=== PATIENT | female | born 1990 | race American Indian/Alaskan Native ===

== ENCOUNTER 2018-12-18 15:09 | Emergency (ER) | payer BC ==
[2018-12-18 15:16] VITALS: O2SAT 100
[2018-12-18 16:08] LABS: BASO % 0.9 % (0.0-2.0); EOS # 0.1 K/uL (0.0-0.7); EOS % 1.1 % (0.0-4.0); HEMOGLOBIN 13.3 g/dL (12.0-16.0); LYMPH # 1.9 K/uL (1.0-4.3); LYMPH % 38.3 % (20.0-40.0); MEAN CELL VOLUME 96.4 fl (81.0-99.0); MEAN CORPUSCULAR HEMOGLOBIN 31.7 pg (27.0-31.0); MEAN CORPUSCULAR HGB CONC 32.9 g/dL (33.0-37.0); MEAN PLATELET VOLUME 9.8 fl (7.2-11.7); MONO # 0.5 K/uL (0.0-0.8); MONO % 10.3 % (0.0-10.0); NEUT # 2.4 K/uL (1.8-7.0); NEUT % 49.4 % (50.0-75.0); NRBC % 0.2 % (0.0-0.0); RBC 4.18 Mil/uL (3.80-5.20); RED CELL DISTRIBUTION WIDTH 13.9 % (11.5-14.5); WHITE BLOOD COUNT 4.9 K/uL (4.8-10.8)
[2018-12-18 16:23] LABS: BLOOD UREA NITROGEN 5 mg/dl (7-17); CALCIUM 9.2 mg/dL (8.4-10.2); GFR NON-AFRICAN AMERICAN > 60
--- NOTE | 2018-12-18 16:49 | US ---
Date of service: 12/18/2018 HISTORY: 6 wks , cramping and spotting LMP 11/05/2018 COMPARISON: None available. TECHNIQUE: Transvaginal FINDINGS: UTERUS: Measures 6.6 x 3.6 by 4.4 cm cm. Within the uterine cavity a single intrauterine gestation is present. The gestational sac mean sac diameter is 1.5 cm corresponding to 5 weeks 6 days. Yolk sac is present measuring 0.3 cm. Pole present crown-rump length equaling 0.6 cm corresponding to 5 weeks 6 days. /embryo cardiac activity present 121 beats per minute. No Idania gestational hemorrhage noted no fibroid or other mass lesion seen. CERVIX: No cervical abnormality identified. Cervix closed measuring 3.1 cm in length. RIGHT OVARY: Measures 3.0 x 2.5 x 3.3 cm. No solid mass. Normal flow. Corpus luteal cyst suggested measures 7 x 6 x 8 mm. LEFT OVARY: Measures 2.2 x 1.2 x 1.4 cm. Tiny 2 to 3 mm peripheral follicle cyst noted. No solid mass. Normal flow. FREE FLUID: No significant free fluid noted. OTHER FINDINGS: None. IMPRESSION: Single intrauterine gestation with normal cardiac activity whose menstrual age by ultrasound parameters is 6 weeks 1 day +/-0 weeks 3 days with an estimated date of delivery of 08/12/2019. This is concordant with the clinical dates of 6 weeks 1 day. Findings compatible with a small right corpus luteal cyst. Perigestational hemorrhage seen.
--- NOTE | 2018-12-18 16:53 | ED PDOC ---
HPI: Female Pain Time Seen by Provider: 12/18/18 15:31 Chief Complaint (Nursing): Female Genitourinary Chief Complaint (Provider): vaginal spotting and cramping History Per: Patient History/Exam Limitations: no limitations Additional Complaint(s): 28 y/o Female with no significant PMH who is approximately 6 weeks who presents with vaginal spotting since last night and lower abdominal cramping for the past month that has gotten slightly worse. Denies dysuria, passing clots, vaginal discharge prior to spotting. She called her [employer] who recommended that she come to ED for further evaluation. Past Medical History Reviewed: Historical Data, Nursing Documentation, Vital Signs Vital Signs: Last Vital Signs Temp 98.3 F 12/18/18 15:13 Pulse 108 H 12/18/18 15:13 Resp 18 12/18/18 15:13 BP 127/74 12/18/18 15:13 Pulse Ox 100 12/18/18 15:13 - Medical History PMH: No Chronic Diseases Denies: Chronic Kidney Disease - Family History Family History: States: Unknown Family Hx - Home Medications Home Medications: Ambulatory Orders Medication Instructions Recorded Nitrofurantoin Macrocrystals 100 mg PO BID 5 Days cap 12/18/18 [Macrobid] - Allergies Allergies/Adverse Reactions: Allergies Allergy/AdvReac Type Severity Reaction Status Date / Time No Known Allergies Allergy Verified 12/18/18 15:12 Review of Systems Constitutional: Negative for: Fever, Chills Gastrointestinal: Positive for: Abdominal Pain. Negative for: Nausea, Vomiting Genitourinary Female: Positive for: Vaginal Bleeding Physical Exam - Reviewed Nursing Documentation Reviewed: Yes Vital Signs Reviewed: Yes - Physical Exam Appears: Positive for: Well Skin: Positive for: Normal Color Cardiovascular/Chest: Positive for: Regular Rate, Rhythm Respiratory: Positive for: Normal Breath Sounds Gastrointestinal/Abdominal: Positive for: Tenderness (mild suprapubic) Lymphatic: Positive for: Normal Exam Neurologic/Psych: Positive for: Alert, Oriented - Laboratory Results Result Diagrams: 12/18/18 16:05 12/18/18 16:05 - ECG O2 Sat by Pulse Oximetry: 100 Medical Decision Making Medical Decision Making: Beta-HCG Transvaginal U/S U/A, Urine culture U/A: LE and nitrate negative, WBCs occasional TVUS: FINDINGS: UTERUS: Measures 6.6 x 3.6 by 4.4 cm cm. Within the uterine cavity a single intrauterine gestation is present. The gestational sac mean sac diameter is 1.5 cm corresponding to 5 weeks 6 days. Yolk sac is present measuring 0.3 cm. Pole present crown-rump length equaling 0.6 cm corresponding to 5 weeks 6 days. /embryo cardiac activity present 121 beats per minute. No Idania gestational hemorrhage noted no fibroid or other mass lesion seen. CERVIX: No cervical abnormality identified. Cervix closed measuring 3.1 cm in length. RIGHT OVARY: Measures 3.0 x 2.5 x 3.3 cm. No solid mass. Normal flow. Corpus luteal cyst suggested measures 7 x 6 x 8 mm. LEFT OVARY: Measures 2.2 x 1.2 x 1.4 cm. Tiny 2 to 3 mm peripheral follicle cyst noted. No solid mass. Normal flow. FREE FLUID: No significant free fluid noted. OTHER FINDINGS: None. IMPRESSION: Single intrauterine gestation with normal cardiac activity whose menstrual age by ultrasound parameters is 6 weeks 1 day +/-0 weeks 3 days with an estimated date of delivery of 08/12/2019. This is concordant with the clinical dates of 6 weeks 1 day. Findings compatible with a small right corpus luteal cyst. Perigestational hemorrhage seen. Sent to [facility] for clarification. No perigestational hemorrhage seen on [facility] reading. Patient informed of ultrasound results and of threatened miscarriage. Advised to call her [employer] in the morning to discuss results and f/u. Return instructions given and prescription for Macrobid given or possible UTI. Disposition - Clinical Impression Clinical Impression: Threatened in early - Patient ED Disposition Is Patient to be Admitted: No Counseled Patient/Family Regarding: Studies Performed, Diagnosis - Disposition Referrals: Monica Martinez MD [Staff Provider] - Disposition: Routine/Home Disposition Time: 18:24 Condition: STABLE Additional Instructions: F/u with Dr. Martinez tomorrow to discuss spotting. Return to ER if your cramping worsens or you begin passing clots. Avoid heavy lifting and rest as much as possible. Prescriptions: Nitrofurantoin Macrocrystals [Macrobid] 100 mg PO BID 5 Days cap Instructions: Threatened Miscarriage (DC), Bleeding With (DC) Forms: [facility] (Serbian) Print Language: UKRAINIAN
[2018-12-18 17:03] LABS: SQUAMOUS EPITHIAL 7 /hpf (0-5); URINE BACTERIA OCC (<OCC); URINE BILIRUBIN NEGATIVE (NEGATIVE); URINE BLOOD SMALL (NEGATIVE); URINE CLARITY CLOUDY (Clear); URINE COLOR YELLOW (YELLOW); URINE GLUCOSE (UA) NEG (NEGATIVE); URINE HYALINE CAST 0-2 /hpf (0-2); URINE LEUKOCYTE ESTERASE NEG Leu/uL (Negative); URINE PROTEIN NEGATIVE (NEGATIVE); URINE UROBILINOGEN 0.2-1.0 mg/dL (0.2-1.0)
[2018-12-18 18:09] VITALS: BP 112/61; PULSE 87; RESP 16; TEMP 99.1
== END 2018-12-18 18:24 | disposition home or self-care (01) ==
LOC: H.ER 15:09
DX: O20.0 Threatened abortion (principal); Z3A.01 Less than 8 weeks gestation of pregnancy